=== PATIENT | male | born 1975 | race Caucasian/White ===

== ENCOUNTER 2017-06-16 08:10 | Emergency (ER) | payer OTHER ==
[~2017-06-16] VITALS: Ht 167.6 cm; Wt 62.1 kg
[2017-06-16 08:12] VITALS: BP 119/59
--- NOTE | 2017-06-16 08:17 | NUR ---
Patient ambulated to bed 08.
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
--- NOTE | 2017-06-16 08:21 | NUR ---
Dr. Gao evaluating patient at bedside.
[2017-06-16] MEDS ORDERED: KETOROLAC 60 MG/2 ML VIAL IM ONE (08:25)
--- NOTE | 2017-06-16 08:26 | NUR ---
PT TAKEN TO X RAY VIA W/C, ACCOMPANIED BY ARMORED MACHINE OPERATOR.
--- NOTE | 2017-06-16 08:43 | NUR ---
PT BACK FROM X RAY VIA W/C, ACCOMPANIED BY BSA OFFICER.
[2017-06-16 09:36] VITALS: BP 120/83
--- NOTE | 2017-06-16 09:36 | NUR ---
Patient discharged with v/s stable. Written and verbal after care instructions given and explained. Patient alert, oriented and verbalized understanding of instructions. Ambulatory with steady gait. All questions addressed prior to discharge. ID band removed. Patient advised to follow up with PMD. Rx of MOTRIN & NORCO given. Patient educated on indication of medication including possible reaction and side effects. Opportunity to ask questions provided and answered.
== END 2017-06-16 09:36 | disposition home or self-care (01) ==
LOC: MED 08:10
DX: S20.211A Contusion of right front wall of thorax, initial encounter (principal); K21.9 Gastro-esophageal reflux disease without esophagitis; I10 Essential (primary) hypertension; F12.10 Cannabis abuse, uncomplicated; Y04.0XXA Assault by unarmed brawl or fight, initial encounter; Y93.89 Activity, other specified; Y92.89 Other specified places as the place of occurrence of the external cause; Y99.8 Other external cause status
CPT/HCPCS: 71101; 93005; 96372; 99284; J1885

== ENCOUNTER 2017-06-26 10:13 | Emergency (ER) | payer OTHER ==
[~2017-06-26] VITALS: Ht 167.6 cm; Wt 61.2 kg
--- NOTE | 2017-06-26 10:20 | NUR ---
Patient to bed 11.
--- NOTE | 2017-06-26 10:22 | NUR ---
Dr. Mccoy at bedside to evaluate patient.
[2017-06-26] MEDS ORDERED: LORazepam 2 MG/ML VIAL IVP ONE (10:30)
[2017-06-26 10:34] VITALS: BP 149/95
[2017-06-26 11:13] LABS: WHITE BLOOD COUNT (AUTO) 7.7 K/uL (4.8-10.8)
[2017-06-26 11:17] LABS: HEMATOCRIT 50.7 % (36-52); HEMOGLOBIN 16.7 g/dL (12.0-18.0); MEAN CORPUSCULAR HEMOGLOBIN 31 pg (27-31); MEAN CORPUSCULAR HGB CONC 33 g/dL (33-37); MEAN CORPUSCULAR VOLUME 95 fL (80-94); PLATELET COUNT (AUTO) 289 K/uL (140-450); RED BLOOD CELL COUNT(AUTO) 5.36 MIL/uL (4.20-6.10); RED CELL DISTRIBUTION WIDTH 12.1 % (11.6-13.7)
--- NOTE | 2017-06-26 11:20 | NUR ---
PT RESTING WITH OU CLOSED, NO S/S RESP DISTRESS---NO GRIMACE NO [facility] WILL CONTINUE TO OBSERVE FOR ANXIETY, RESP DISTRESS
[2017-06-26 11:31] LABS: ANION GAP 17.8 (8-16); CARBON DIOXIDE 25.7 mmol/L (21-32); POTASSIUM 3.5 mmol/L (3.5-5.1)
[2017-06-26 11:32] LABS: CREATININE 1.1 mg/dL (0.7-1.3)
[2017-06-26 11:35] LABS: BASOPHILS % (MANUAL) 0 % (0-2); EOSINOPHILS % (MANUAL) 7 % (0-4); LYMPHOCYTES % (MANUAL) 29 % (20-46); MONOCYTES % (MANUAL) 5 % (5-12)
[2017-06-26 11:51] LABS: ALBUMIN 4.7 g/dL (3.4-5.0); TOTAL BILIRUBIN 0.7 mg/dL (0.0-1.0)
--- NOTE | 2017-06-26 12:22 | NUR ---
pt a/o x 4 full clear speech---denies sob, denies feeling anxious---feet crossed, texting at this time. skink dry pink warm to touch
[2017-06-26 12:46] VITALS: BP 121/72
== END 2017-06-26 12:48 | disposition home or self-care (01) ==
LOC: MED 10:13
DX: F41.9 Anxiety disorder, unspecified (principal); R06.02 Shortness of breath; K21.9 Gastro-esophageal reflux disease without esophagitis; I10 Essential (primary) hypertension
CPT/HCPCS: 36415; 80053; 85025; 96374; 99284; J2060

== ENCOUNTER 2017-12-15 07:44 | Day surgery (SDC) | payer OTHER ==
[~2017-12-15] VITALS: Ht 167.6 cm; Wt 60.3 kg
[2017-12-15 09:27] LABS: BASOPHILS # (AUTO) 0.1 K/uL (0.00-0.22); EOSINOPHILS # (AUTO) 0.5 K/uL (0-0.4); EOSINOPHILS % (AUTO) 8.8 % (0.0-4.0); HEMOGLOBIN 16.1 g/dL (12.0-18.0); LYMPHOCYTES # (AUTO) 2.2 K/uL (2.0-11.5); LYMPHOCYTES % (AUTO) 40.3 % (20.5-51.1); MEAN CORPUSCULAR HEMOGLOBIN 32 pg (27-31); MEAN CORPUSCULAR HGB CONC 34 g/dL (33-37); MEAN CORPUSCULAR VOLUME 94.1 fL (80-94); MONOCYTES # (AUTO) 0.4 K/uL (0.8-1.0); MONOCYTES % (AUTO) 8.3 % (1.7-9.3); NEUTROPHILS # (AUTO) 2.2 K/uL (1.8-7.7); NEUTROPHILS % (AUTO) 41.6 % (42.2-75.2); PLATELET COUNT (AUTO) 252 K/uL (140-450); RED CELL DISTRIBUTION WIDTH 13.1 % (11.6-13.7); WHITE BLOOD COUNT (AUTO) 5.4 K/uL (4.8-10.8)
[2017-12-15 09:43] LABS: ALBUMIN 4.5 g/dL (3.4-5.0); ANION GAP 11.6 (8-16); CARBON DIOXIDE 31.4 mmol/L (21-32); CREATININE 1.1 mg/dL (0.7-1.3); TOTAL BILIRUBIN 0.5 mg/dL (0.0-1.0)
[2017-12-15] MEDS ORDERED: PROPOFOL 200 MG/20 ML VIAL IV ONE (11:22)
== END 2017-12-15 12:30 | disposition home or self-care (01) ==
LOC: MOR 07:44 → MMU 07:48 → MOR 12:30
PROVIDERS: ATTEND Internal Medicine Gastroenterology
DX: R13.10 Dysphagia, unspecified (principal); E66.3 Overweight; J45.909 Unspecified asthma, uncomplicated; K44.9 Diaphragmatic hernia without obstruction or gangrene; M19.90 Unspecified osteoarthritis, unspecified site; D64.9 Anemia, unspecified; E11.22 Type 2 diabetes mellitus with diabetic chronic kidney disease; I12.9 Hypertensive chronic kidney disease with stage 1 through stage 4 chronic kidney disease, or unspecified chronic kidney disease; N18.9 Chronic kidney disease, unspecified; K21.9 Gastro-esophageal reflux disease without esophagitis; F17.210 Nicotine dependence, cigarettes, uncomplicated
CPT/HCPCS: 36415; 43235; 71045; 80053; 85025; 93005; J2704; J7030; J7120; Q0092